=== PATIENT | male | born 1980 | race Caucasian/White ===

== ENCOUNTER 2023-01-24 08:56 | Emergency (ER) | payer MEDICARE, OTHER ==
[~2023-01-24] VITALS: Ht 177.8 cm; Wt 64.6 kg
[2023-01-24] MEDS ORDERED: CYCLOBENZAPRINE10 MG PO (09:40)
[2023-01-24 09:45] VITALS: BP 129/83
== END 2023-01-24 09:46 | disposition home or self-care (01) ==
LOC: ED 08:56
DX: R07.89 Other chest pain (principal); Z59.00 Homelessness unspecified
CPT/HCPCS: 99283; A9270

== ENCOUNTER 2023-05-03 03:20 | Emergency (ER) | payer MEDICARE, OTHER ==
[~2023-05-03] VITALS: Ht 177.8 cm; Wt 68.0 kg
[~2023-05-03 03:20] MED LIST: CYCLOBENZAPRINE10 MG PO
[2023-05-03 05:22] VITALS: BP 129/77
== END 2023-05-03 07:02 | disposition home or self-care (01) ==
LOC: ED 03:20
DX: R23.1 Pallor (principal); T69.9XXA Effect of reduced temperature, unspecified, initial encounter
CPT/HCPCS: 99283